=== PATIENT | male | born 1950 | race Caucasian/White ===

== ENCOUNTER 2017-02-20 15:19 | Emergency (ER) | payer OTHER ==
[~2017-02-20] VITALS: Ht 180.3 cm; Wt 97.5 kg
--- NOTE | ~2017-02-20 | EKG ---
[address] [place] [address] ELECTROCARDIOGRAM REPORT Name: LUIS MITCHELL Room #: [facility] [id number] Admission: 02/20/17 Attend Phys: Discharge: 02/20/17 Date of : 50 Report #: [id number] THIS REPORT FOR: //name// [facility] ED Test Date: 2017-02-20 Test Time: 15:58:41 Pat Name: LUIS MITCHELL Department: Room: Gender: Coin [employer] Supervisor: Zhao COON : 1950 Requested By: Raegan Bradford Order Number: [id number] MD: Joe Jaime Measurements Intervals [place] Rate: 78 P: 37 FL: 177 QRS: -47 QRSD: 99 T: 103 QT: 378 QTc: 431 Interpretive Statements Sinus rhythm Left anterior fascicular block Borderline T abnormalities, lateral leads No previous ECG available for comparison Electronically Signed On 02-21-2017 8:13:41 CDT by Joe Jaime [email or web address] <ELECTRONICALLY SIGNED> By: Joe Jaime MD, [facility] 02/21/17 0813 [id number] Joe Jaime MD, FACC /EPI
[2017-02-20 15:45] LABS: ABSOLUTE NEUTROPHILS 6.1 thou/uL (1.4-8.2); EOSINOPHILS 2.7 % (0.0-3.0); HEMATOCRIT 41.4 % (42.0-52.0); HEMOGLOBIN 14.5 gm/dL (14.0-18.0); LYMPHOCYTES 26.9 % (24.0-44.0); MCH 30.6 pg (26.0-34.0); MCV 87.3 fL (80.0-100.0); MONOCYTES 8.9 % (1.0-8.0); PLATELET COUNT 222 thou/uL (150-400); POLYS 60.5 % (36.0-66.0); RBC 4.74 mil/uL (4.50-6.00); RDW 13.2 % (10.5-14.5); WBC 10.1 thou/uL (4.0-11.0)
[2017-02-20 15:46] LABS: MANUAL DIFF NO
[2017-02-20 15:51] LABS: POC CA IONIZED 4.5 mg/dL (4.5-5.3); POC CREATININE 0.8 mg/dL (0.6-1.3); POC HEMOGLOBIN 14.3 g/dL (14.0-18.0); POC POTASSIUM 3.6 mmol/L (3.5-5.1)
[2017-02-20 16:09] LABS: APTT 26.7 Seconds (24.5-32.8); PROTIME 10.7 Seconds (9.3-11.4)
[2017-02-20 17:51] VITALS: BP 155/79
== END 2017-02-20 17:55 | disposition short-term general hospital (02) ==
LOC: ER 15:19
PROVIDERS: Emergency Medicine
DX: I63.9 Cerebral infarction, unspecified (principal)